=== PATIENT | male | born 1990 | race Two or more races ===

== ENCOUNTER 2018-10-10 14:32 | Emergency (ER) | payer MEDICARE ==
[~2018-10-10] VITALS: Ht 170.2 cm; Wt 85.0 kg
[2018-10-10 14:47] VITALS: BP 162/84
== END 2018-10-10 16:08 | disposition home or self-care (01) ==
LOC: ED 16:00
DX: M79.671 Pain in right foot (principal); M79.672 Pain in left foot; Z72.9 Problem related to lifestyle, unspecified
CPT/HCPCS: 99283